=== PATIENT | female | born 1985 | race Two or more races ===

== ENCOUNTER 2019-09-20 10:05 | Inpatient (IN) | payer MEDICAID ==
[~2019-09-20] VITALS: Ht 167.6 cm; Wt 90.9 kg
[2019-09-20] MEDS ORDERED: LACTATED RINGERS 1,000 ML IVBOLUS ONE (10:30)
[2019-09-20] MEDS ORDERED: SODIUM CITRATE/CITRIC ACID 30 ML UDC PO ONE (10:30)
[2019-09-20] MEDS ORDERED: CALCIUM CARBONATE 500 MG TAB.CHEW PO PRN (10:30)
[2019-09-20] MEDS ORDERED: METOCLOPRAMIDE 5 MG/ML, 2ML IV ONE (10:30)
[2019-09-20] MEDS ORDERED: ONDANSETRON 2MG/ML, 2ML IVPush ONE (10:30)
[2019-09-20] MEDS: LACTATED RINGERS 1,000 ML IV SCH ×4 (10:43→17:06)
[2019-09-20] MEDS ORDERED: PLEASE ENTER HEIGHT AND WEIGHT MC SCH (11:00)
[2019-09-20] MEDS ORDERED: PLEASE ENTER ALLERGIES MC SCH (11:00)
[2019-09-20 11:04] VITALS: BP 115/64
[2019-09-20 11:10] LABS: BASOPHILS # (AUTO) 0.02 x10^3/uL (0-0.1); BASOPHILS % (AUTO) 0 % (0-1); EOSINOPHILS # (AUTO) 0.11 x10^3/uL (0-0.4); EOSINOPHILS % (AUTO) 1 % (1-7); LYMPHOCYTES # (AUTO) 1.31 x10^3/uL (1-3.4); LYMPHOCYTES % (AUTO) 17 % (22-44); MD NO; MEAN CORPUSCULAR HGB CONC 33.2 g/dL (32.4-35.8); MEAN CORPUSCULAR VOLUME 99.5 fL (80-100); MEAN PLATELET VOLUME 7.9 fL (7.4-10.4); MONOCYTES # (AUTO) 0.64 x10^3/uL (0.2-0.8); MONOCYTES % (AUTO) 8 % (2-9); NEUTROPHILS # (AUTO) 5.61 x10^3/uL (1.8-6.8); NEUTROPHILS % (AUTO) 73 % (42-75); PLATELET COUNT 181 x10^3/uL (130-400); RED BLOOD COUNT 4.46 x10^6/uL (3.82-5.3); RED CELL DISTRIBUTION WIDTH 13.8 % (9.6-15.2)
[2019-09-20] MEDS ORDERED: SODIUM CITRATE/CITRIC ACID 30 ML UDC ONE (11:26)
[2019-09-20] MEDS ORDERED: NEWBORN KIT ONE (11:26)
[2019-09-20] MEDS ORDERED: OXYTOCIN 30U/ 0.9% NaCL 500ML 500 ML ONE (11:26)
[2019-09-20] MEDS ORDERED: METOCLOPRAMIDE 5 MG/ML, 2ML ONE (11:26)
[2019-09-20] MEDS ORDERED: FENTANYL PF 100 MCG/2ML ONE (12:23)
[2019-09-20] MEDS ORDERED: morphine SULFATE/PF 0.5 MG/ML, 10ML ONE (12:23)
[2019-09-20] MEDS ORDERED: DEXAMETHASONE 4 MG/ML, 1ML ONE (12:38)
[2019-09-20] MEDS ORDERED: OXYTOCIN 10 UNITS/ML, 1ML ONE (12:38)
[2019-09-20] MEDS ORDERED: WATER-INJECTION,STERILE 10 ML IV ONE (12:38)
[2019-09-20] MEDS ORDERED: KETOROLAC 30 MG/1 ML ONE (12:38)
[2019-09-20] MEDS ORDERED: CEFAZOLIN 1,000 MG ONE (12:38)
[2019-09-20] MEDS ORDERED: ONDANSETRON 2MG/ML, 2ML ONE (12:38)
[2019-09-20] MEDS ORDERED: PHENYLEPHRINE 10 MG/ML ONE (12:42)
[2019-09-20] MEDS ORDERED: SODIUM CHLORIDE 0.9% PF 10ML ONE ×2 (12:42→12:46)
[2019-09-20] MEDS ORDERED: EPHEDRINE 50 MG/ML, 1ML ONE (12:46)
[2019-09-20 16:20] VITALS: BP 117/71
[2019-09-20] MEDS: OXYTOCIN 30U/ 0.9% NaCL 500ML 500 ML IV SCH (17:06)
[2019-09-20] MEDS ORDERED: MEPERIDINE/PF 25MG/0.5ML IM PRN (17:30)
[2019-09-20] MEDS ORDERED: DO NOT GIVE XX SCH (17:30)
[2019-09-20] MEDS ORDERED: ACETAMINOPHEN 325 MG TABLET PO PRN (17:30)
[2019-09-20] MEDS ORDERED: OXYcodone/APAP 5/325MG TABLET PO PRN (17:30)
[2019-09-20] MEDS ORDERED: SIMETHICONE 80 MG CHEW TAB PO PRN (17:30)
[2019-09-20] MEDS ORDERED: DIPHENHYDRAMINE 50 MG/ML, 1ML IVPush PRN (17:30)
[2019-09-20] MEDS ORDERED: TRANEXAMIC ACID 100 MG/ML, 10ML IV ONE (17:30)
[2019-09-20] MEDS ORDERED: EPHEDRINE 50 MG/ML, 1ML IVPush PRN (17:30)
[2019-09-20] MEDS ORDERED: MISOPROSTOL 200 MCG TABLET PR PRN (17:30)
[2019-09-20] MEDS ORDERED: NALOXONE 0.4 MG/ML, 1ML IV PRN (17:30)
[2019-09-20] MEDS ORDERED: morphine SULFATE 10 MG/ML, 1ML IVPush PRN (17:30)
[2019-09-20] MEDS ORDERED: ONDANSETRON 2MG/ML, 2ML IV PRN (17:30)
[2019-09-20 19:30] VITALS: BP 107/66
[2019-09-20] MEDS: KETOROLAC 30 MG/1 ML IV SCH (19:40)
[2019-09-20 23:59] VITALS: BP 105/65
[2019-09-21] MEDS: LACTATED RINGERS 1,000 ML IV SCH ×6 (01:06→23:06)
[2019-09-21] MEDS: KETOROLAC 30 MG/1 ML IV SCH ×4 (02:01→19:55)
[2019-09-21] MEDS: OXYTOCIN 30U/ 0.9% NaCL 500ML 500 ML IV SCH ×3 (03:06→23:06)
[2019-09-21 04:00] VITALS: BP 105/64
[2019-09-21] MEDS: OXYcodone/APAP 5/325MG TABLET PO PRN ×4 (04:27→23:15)
[2019-09-21 05:51] LABS: BASOPHILS # (AUTO) 0.03 x10^3/uL (0-0.1); BASOPHILS % (AUTO) 0 % (0-1); EOSINOPHILS # (AUTO) 0.01 x10^3/uL (0-0.4); EOSINOPHILS % (AUTO) 0 % (1-7); LYMPHOCYTES # (AUTO) 1.53 x10^3/uL (1-3.4); LYMPHOCYTES % (AUTO) 15 % (22-44); MD NO; MEAN CORPUSCULAR HEMOGLOBIN 32.9 pg (27.0-34.8); MEAN CORPUSCULAR HGB CONC 33.9 g/dL (32.4-35.8); MEAN CORPUSCULAR VOLUME 97.2 fL (80-100); MEAN PLATELET VOLUME 7.4 fL (7.4-10.4); MONOCYTES # (AUTO) 1.03 x10^3/uL (0.2-0.8); MONOCYTES % (AUTO) 10 % (2-9); NEUTROPHILS # (AUTO) 7.44 x10^3/uL (1.8-6.8); NEUTROPHILS % (AUTO) 74 % (42-75); PLATELET COUNT 157 x10^3/uL (130-400); RED BLOOD COUNT 3.99 x10^6/uL (3.82-5.3); RED CELL DISTRIBUTION WIDTH 13.5 % (9.6-15.2)
[2019-09-21] MEDS ORDERED: DIPH,PERTUSS(ACELL),TET VAC/PF NC IM-VACC ONE (06:30)
[2019-09-21] MEDS: PRENATAL VIT/IRON/FA 1 EACH TABLET PO SCH (08:36)
[2019-09-21] MEDS: DOCUSATE 100 MG CAPSULE PO PRN ×2 (08:36→23:15)
[2019-09-21 08:59] VITALS: BP 97/63
[2019-09-21 12:15] VITALS: BP 100/62
[2019-09-21 22:05] VITALS: BP 99/61
[2019-09-22] MEDS: LACTATED RINGERS 1,000 ML IV SCH ×3 (01:06→09:39)
[2019-09-22] MEDS: KETOROLAC 30 MG/1 ML IV SCH ×2 (01:52→07:58)
[2019-09-22 07:00] VITALS: BP 106/67
[2019-09-22] MEDS: PRENATAL VIT/IRON/FA 1 EACH TABLET PO SCH (07:58)
[2019-09-22] MEDS: DOCUSATE 100 MG CAPSULE PO PRN (07:58)
[2019-09-22] MEDS: OXYcodone/APAP 5/325MG TABLET PO PRN (08:08)
[2019-09-22] MEDS ORDERED: DOCU-131 PO (08:15)
[2019-09-22] MEDS ORDERED: OXYC-302 PO (08:15)
[2019-09-22] MEDS ORDERED: IBUP-1222 PO (08:15)
[2019-09-22] MEDS: OXYTOCIN 30U/ 0.9% NaCL 500ML 500 ML IV SCH (09:39)
[2019-09-22] MEDS ORDERED: IBUPROFEN 600 MG TABLET PO PRN (19:30)
== END 2019-09-22 12:05 | disposition home or self-care (01) | DRG 540 ==
LOC: LDIP 10:05 → 2NW 16:20
PROVIDERS: ADMIT Obstetrics & Gynecology; ATTEND Obstetrics & Gynecology
PROC: 10D00Z1 Extraction of Products of Conception, Low, Open Approach (ICD-10-PCS; principal; 2019-09-20)
PROC: 0UB70ZZ Excision of Bilateral Fallopian Tubes, Open Approach (ICD-10-PCS; 2019-09-20)
DX: O34.211 Maternal care for low transverse scar from previous cesarean delivery (principal); G89.18 Other acute postprocedural pain; L91.0 Hypertrophic scar; O43.193 Other malformation of placenta, third trimester; O69.82X0 Labor and delivery complicated by other cord entanglement, without compression, not applicable or unspecified; O99.72 Diseases of the skin and subcutaneous tissue complicating childbirth; Z37.0 Single live birth; Z3A.39 39 weeks gestation of pregnancy
CPT/HCPCS: 36415; 85025; 86850; 86900; 86923; 88302; G0378; J0690; J1100; J1885; J2274; J2405; J3010; J2370; J2590; J7120